=== PATIENT | female | born 1940 | race Caucasian/White ===

== ENCOUNTER 2020-07-16 13:49 | Emergency (ER) | payer MEDICARE, OTHER ==
[~2020-07-16 13:49] MED LIST: AMBIEN10 MG PO; ASPIRIN 325MG325 MG PO; CRESTOR20 MG PO; DEXILANT60 MG PO; FLORASTOR250 MG PO; HYDRALAZINE HCL25 MG PO; LEVAQUIN750 MG PO; LOPRESSOR50 MG PO; NORCO 7.5-3251 EACH PO; PLAVIX 75 MG TA75 MG PO; RANEXA500 MG PO; VASOTEC 10 MG T10 MG PO; VIBRAMYCIN100 MG PO; XANAX 0.25 MG0.25 MG PO; ZOLOFT50 MG PO
== END 2020-07-16 15:45 | disposition home or self-care (01) ==
LOC: ER1 13:49
DX: S82.62XA Displaced fracture of lateral malleolus of left fibula, initial encounter for closed fracture (principal); I10 Essential (primary) hypertension; W18.30XA Fall on same level, unspecified, initial encounter; Y92.009 Unspecified place in unspecified non-institutional (private) residence as the place of occurrence of the external cause
CPT/HCPCS: 73590; 73610; 99283

== ENCOUNTER 2020-07-21 11:32 | Day surgery (SDC) | payer MEDICARE, OTHER ==
[~2020-07-21] VITALS: Ht 160 cm; Wt 77.1 kg
[2020-07-21] MEDS ORDERED: ASPIRIN325 MG PO (13:17)
[2020-07-21] MEDS ORDERED: METOPROLOL TART50 MG PO (13:17)
[2020-07-21] MEDS ORDERED: NEXLETOL180 MG PO (13:18)
[2020-07-21] MEDS ORDERED: HYDRALAZINE HCL25 MG PO (13:19)
[2020-07-21] MEDS ORDERED: RANEXA500 MG PO (13:19)
[2020-07-21] MEDS ORDERED: CLOPIDOGREL75 MG PO (13:20)
[2020-07-21] MEDS ORDERED: ENALAPRIL PO (13:20)
[2020-07-21] MEDS ORDERED: GABAPENTIN600 MG PO (13:21)
[2020-07-21] MEDS ORDERED: DEXILANT60 MG PO (13:22)
[2020-07-21] MEDS ORDERED: AMBIEN5 MG PO (13:23)
[2020-07-21] MEDS ORDERED: LIDOCAINE PATCH TP (13:25)
[2020-07-21] MEDS ORDERED: HYDROCODON-ACE1 EAC6 PO ×2 (13:27→13:29)
[2020-07-21] MEDS ORDERED: FLORASTOR250 MG PO (13:30)
[2020-07-21] MEDS ORDERED: VIT D3 PO (13:31)
[2020-07-21] MEDS ORDERED: VIT B12 PO (13:32)
[2020-07-21] MEDS ORDERED: ZINC50 M1 PO (13:32)
[2020-07-21 13:55] LABS: RED BLOOD COUNT 4.16 M/UL (4.00-5.10); WHITE BLOOD COUNT 6.4 K/UL (4.5-11.0)
[2020-07-21] MEDS ORDERED: PERCOCET 7.5-31 EACH PO (14:50)
[2020-07-21] MEDS ORDERED: LOVENOX30 MG/0.3 SQ (14:50)
[2020-07-21] MEDS ORDERED: ENALAPRIL MALEA20 MG PO (21:06)
== END 2020-07-22 13:10 | disposition home or self-care (01) ==
LOC: OR 11:32 → M/S 17:47 → OR 07-22 13:10
PROVIDERS: Orthopaedic Surgery
DX: S82.62XA Displaced fracture of lateral malleolus of left fibula, initial encounter for closed fracture (principal); I25.10 Atherosclerotic heart disease of native coronary artery without angina pectoris; C44.90 Unspecified malignant neoplasm of skin, unspecified; E78.5 Hyperlipidemia, unspecified; I10 Essential (primary) hypertension; G89.18 Other acute postprocedural pain; K21.9 Gastro-esophageal reflux disease without esophagitis; Z79.899 Other long term (current) drug therapy; W19.XXXA Unspecified fall, initial encounter
CPT/HCPCS: 36415; 73610; 76000; 80048; 85025; 93005; 97161; C1713; J0592; J0690; J1100; J1650; J2001; J2704; J2795; J3010; J7030; J7120

== ENCOUNTER 2021-06-09 17:59 | Emergency (ER) | payer MEDICARE, OTHER ==
[~2021-06-09 17:59] MED LIST changes: +AMBIEN5 MG PO; +ASPIRIN325 MG PO; +CLOPIDOGREL75 MG PO; +ENALAPRIL MALEA20 MG PO; +ENALAPRIL PO; +GABAPENTIN600 MG PO; +HYDROCODON-ACE1 EAC6 PO; +LIDOCAINE PATCH TP; +LOVENOX30 MG/0.3 SQ; +METOPROLOL TART50 MG PO; +NEXLETOL180 MG PO; +PERCOCET 7.5-31 EACH PO; +VIT B12 PO; +VIT D3 PO; +ZINC50 M1 PO
[2021-06-09 19:12] LABS: HEMOGLOBIN 14.6 gm/dl (12.3-15.3); RED BLOOD COUNT 4.86 M/UL (4.00-5.10); WHITE BLOOD COUNT 4.1 K/UL (4.5-11.0)
[2021-06-09 19:39] LABS: BUN/CREATININE RATIO 25 (0-10)
[2021-06-09] MEDS ORDERED: ZOFRAN ODT 4 MG4 MG GT (20:59)
== END 2021-06-09 21:16 | disposition home or self-care (01) ==
LOC: ER1 17:59
PROVIDERS: Emergency Medicine
DX: U07.1 COVID-19 (principal); I11.9 Hypertensive heart disease without heart failure
CPT/HCPCS: 0240U; 71045; 80053; 81001; 83605; 85025; 96374; 96375; 99283; J0360; J2405

== ENCOUNTER 2021-07-26 16:19 | Inpatient (IN) | payer MEDICARE, OTHER ==
[~2021-07-26] VITALS: Ht 160 cm; Wt 77.6 kg
[~2021-07-26 16:19] MED LIST changes: -VIT B12 PO; +ZOFRAN ODT 4 MG4 MG GT
[2021-07-26 17:26] LABS: HEMOGLOBIN 13.1 gm/dl (12.3-15.3); RED BLOOD COUNT 4.25 M/UL (4.00-5.10); WHITE BLOOD COUNT 5.8 K/UL (4.5-11.0)
[2021-07-26 17:48] LABS: BUN/CREATININE RATIO 15 (0-10)
[2021-07-27 02:09] LABS: WHITE BLOOD COUNT 5.2 K/UL (4.5-11.0)
[2021-07-27 02:24] LABS: RED BLOOD COUNT 3.65 M/UL (4.00-5.10)
[2021-07-27 02:32] LABS: BUN/CREATININE RATIO 13 (0-10)
[2021-07-27] MEDS ORDERED: LIORESAL TAB 1010 MG PO (09:07)
[2021-07-27] MEDS ORDERED: NEURONTIN800 MG PO (09:09)
[2021-07-27] MEDS ORDERED: HYDROCODON-ACE1 EAC6 PO (09:12)
[2021-07-27] MEDS ORDERED: LAC-HYDRIN FIV226 GM TOP (09:13)
[2021-07-27] MEDS ORDERED: NEXLIZET 180-11 EACH PO (09:15)
[2021-07-27] MEDS ORDERED: HYDRALAZINE HCL10 MG PO (09:17)
[2021-07-27] MEDS ORDERED: ZOLOFT50 MG PO (09:19)
[2021-07-27] MEDS ORDERED: K-TAB ER10 MEQ PO (09:23)
[2021-07-27] MEDS ORDERED: LASIX20 MG PO (09:23)
[2021-07-27] MEDS ORDERED: CALCIUM 600 +1 EAC3 PO (09:26)
[2021-07-27] MEDS ORDERED: VITAMIN B-121000 MC3 PO (13:32)
[2021-07-28 03:00] LABS: HEMOGLOBIN 11.5 gm/dl (12.3-15.3); RED BLOOD COUNT 3.78 M/UL (4.00-5.10); WHITE BLOOD COUNT 5.7 K/UL (4.5-11.0)
[2021-07-28 03:54] LABS: BUN/CREATININE RATIO 17 (0-10)
[2021-07-28] MEDS ORDERED: LEVOFLOXACIN500 MG PO (08:00)
== END 2021-07-28 09:31 | disposition home or self-care (01) | DRG 305 ==
LOC: ER1 16:19 → PROG CARE 18:26 → CDU 18:26 → PROG CARE 20:30
PROVIDERS: Preventive Medicine Occupational Medicine; ADMIT Internal Medicine
PROC: B24BZZZ Ultrasonography of Heart with Aorta (ICD-10-PCS; principal; 2021-07-27)
DX: I16.0 Hypertensive urgency (principal); I16.1 Hypertensive emergency; N30.00 Acute cystitis without hematuria; Z20.822 Contact with and (suspected) exposure to COVID-19; I25.10 Atherosclerotic heart disease of native coronary artery without angina pectoris; E78.5 Hyperlipidemia, unspecified; E87.6 Hypokalemia; D63.1 Anemia in chronic kidney disease; I08.1 Rheumatic disorders of both mitral and tricuspid valves; F17.210 Nicotine dependence, cigarettes, uncomplicated; B96.1 Klebsiella pneumoniae [K. pneumoniae] as the cause of diseases classified elsewhere; I71.4 Abdominal aortic aneurysm, without rupture; Z79.01 Long term (current) use of anticoagulants; Z79.82 Long term (current) use of aspirin; Z95.5 Presence of coronary angioplasty implant and graft; I25.2 Old myocardial infarction; Z90.49 Acquired absence of other specified parts of digestive tract; Z90.710 Acquired absence of both cervix and uterus; Z98.1 Arthrodesis status; Z82.49 Family history of ischemic heart disease and other diseases of the circulatory system; Z98.890 Other specified postprocedural states; Z88.7 Allergy status to serum and vaccine
CPT/HCPCS: ECHO; 36415; 71045; 80053; 80061; 81001; 82550; 82553; 83690; 83735; 83880; 84132; 84484; 85025; 85027; 85652; 86140; 87040; 87077; 87086; 87186; 93005; 93306; 96374; 99284; J0696; J1650; J3475; U0002

== ENCOUNTER → 2021-11-09 | Outpatient (CLI) | payer MEDICARE, OTHER ==
[~2021-11-09] MED LIST changes: +CALCIUM 600 +1 EAC3 PO; +HYDRALAZINE HCL10 MG PO; +K-TAB ER10 MEQ PO; +LAC-HYDRIN FIV226 GM TOP; +LASIX20 MG PO; +LEVOFLOXACIN500 MG PO; +LIORESAL TAB 1010 MG PO; +NEURONTIN800 MG PO; +NEXLIZET 180-11 EACH PO; +VITAMIN B-121000 MC3 PO
== END ==
LOC: LAB 13:18
PROVIDERS: Physician Assistant
DX: E87.5 Hyperkalemia (principal)
CPT/HCPCS: 80048